=== PATIENT | male | born 1995 | race African-American/Black ===

== ENCOUNTER 2024-08-08 09:28 | Emergency (ER) | payer SELFPAY ==
[~2024-08-08] VITALS: Ht 180.3 cm; Wt 96.0 kg
[2024-08-08 09:32] VITALS: O2SAT 99
[2024-08-08 11:53] VITALS: BP 128/80; PULSE 81; RESP 16; TEMP 37.2; O2SAT 99
== END 2024-08-08 11:54 | disposition home or self-care (01) ==
LOC: ER 09:28
DX: S01.412A Laceration without foreign body of left cheek and temporomandibular area, initial encounter (principal); Y04.0XXA Assault by unarmed brawl or fight, initial encounter; Y93.89 Activity, other specified; Y92.89 Other specified places as the place of occurrence of the external cause; Y99.8 Other external cause status
CPT/HCPCS: 70450; 70486; 12011; 99284; Z7610 ×2